=== PATIENT | male | born 1960 | race Caucasian/White ===

== ENCOUNTER → 2023-11-04 11:46 | Outpatient (REF) | payer BC, SELFPAY | LOC: HWRAD 11:46 | PROVIDERS: ATTENDING PHYSICIAN Student in an Organized Health Care Education/Training Program | DX: L03.90 Cellulitis, unspecified (principal); L97.519 Non-pressure chronic ulcer of other part of right foot with unspecified severity | CPT/HCPCS: 73630 ==

== ENCOUNTER 2024-03-26 06:07 | Inpatient (IN) | payer BC, SELFPAY ==
[2024-03-26] VITALS (18 sets, daily range): BP systolic 111–164; BP diastolic 73–94; BMI 33.8; BMI 33.2
--- NOTE | 2024-03-26 01:22 | ED.GENMED ---
History of Present Illness
<KASSIDY Simms - Last Filed: 03/26/24 17:59>
General
Chief Complaint: Abdominal Pain
Source: patient and spouse
Exam Limitations: none
Time Seen by Provider: 03/26/24 01:13
History of Present Illness
History of Present Illness:
This is a 63 year old male that comes in with c/o upper abd pain. States that this started about 1 hour ago and has been constant. states that he had dry heaves and then he as making himself vomiting. States that he has vomited since then.
States that he feels SOB up a little higher then his abd. . Denies any fever, chills, diarrhea, headache, dizziness, urinary burning.
Past History
<KASSIDY Simms - Last Filed: 03/26/24 17:59>
Past History
ED Past Medical History: HTN, NIDDM and Other (fatty liver)
ED Past Surgical History: Orthopedic (discectomy)
Social History
Tobacco: Former smoker
Alcohol: Occasional
Personal:
Living: with family
Review of Systems
<KASSIDY Simms - Last Filed: 03/26/24 17:59>
Review of Systems
All Other Systems: ROS reviewed and negative except as documented in HPI and ROS
Constitutional: Reports no symptoms; Denies fever or chills
EENT: Reports no symptoms
Cardiac: Denies chest pain
ABD/GI: Reports abdominal pain (Upper abd), nausea and vomiting; Denies diarrhea
: Reports no symptoms; Denies dysuria, frequency or urgency
Musculoskeletal: Reports no symptoms
Skin: Reports no symptoms
Neurological: Reports no symptoms; Denies dizzy or headache
Psychiatric: Reports no symptoms
Phy Exam
<KASSIDY Simms - Last Filed: 03/26/24 17:59>
General Physical Exam
General Presentation: moderate distress
General age: appears stated age
General Skin: warm and dry
General Habitus: normal
General Mental: alert
General Hydration: appears well hydrated
ENT Exam
ENT Exam: TM's normal, pharynx normal and neck supple
Eye Exam
Eye Exam: EOMI
Cardiovascular Exam
Cardiovascular Exam: regular rate/rhythm, no edema and normal peripheral pulses
Pulmonary Exam
Pulmonary Exam: lungs clear, no respiratory distress, no rales, chest non tender, no crackles, no rhonchi, no wheezing and no cough
Gastrointestinal Exam
Gastrointestinal Exam: normal bowel sounds, soft, no organomegaly, no pulsatile mass, non distended and tender (Upper epigastric area with palpation)
Musculoskeletal Exam
Musculoskeletal Exam: full ROM and no edema
Skin Exam
Skin Exam: normal color, warm/dry, no rash and no petechia
Psychiatric Exam
Psychiatric Exam: normal mood/affect
Course
<KASSIDY Simms - Last Filed: 03/26/24 17:59>
Orders/Labs/Results
Orders:
Orders
03/26/24 01:12
Electrocardiogram (*1) Urgent
Reason for Study: Abdominal Pain
03/26/24 01:21
0.9% Sodium Chloride 1000 ml [Nss] 1,000 ml IV BOLUS
HYDROmorphone [Dilaudid] 1 mg IV NOW STA
Ondansetron Injectable [Zofran] 4 mg IV NOW STA
Pantoprazole [Protonix IV] 40 mg IV NOW STA
US Abdomen Complete/Upper Urgent
Comment:
Reason For Exam: Upper abd pain
03/26/24 01:46
Complete Blood Count/With Diff Urgent
Comprehensive Metabolic Panel Urgent
Lipase Urgent
Troponin I Urgent
03/26/24 02:50
Sucralfate Suspension [Carafate Suspension] 1 gm PO NOW STA
03/26/24 02:55
CT Abd/pelvis W Iv Cont Urgent
Comment:
Reason For Exam: upper abd pain/ right sided
CR Chest - 2 Views Urgent
Comment:
Reason For Exam: SOB
03/26/24 05:29
HYDROmorphone [Dilaudid] 1 mg IV NOW STA
03/26/24 05:44
Admit/Transfer Patient As Directed
Co-Sign Provider:
Level of Care: Inpatient admission
Assign to:: Telemetry
Physician / Group: Juni
Diagnosis: Cholelithiasis +/- Cholecystitis
Reason for Telemetry: Arrhythmia
Date to Stop Telemetry: 03/29/24
Time to Stop Telemetry: 11:00
Reason for Hospitalization: Cholelithiasis +/- Cholecystitis
Expected length of stay greater than two midnights?: Yes
ELOS- Estimated Length of Stay in days: 3
I certify the patient meets the requirements for IP care: Yes
03/26/24 05:45
Code Status As Directed
Resuscitation Status: Full Code
PRN Pain Medication Management As Directed
May give lesser potent ordered pain med per pt: Yes
preference::
Protocol:: Medication orders for pain may be administered in a
manner that supports deferring to patient preference
when the pt is:
- Requesting an ordered lesser potent pain medication.
Least to most potent pain medications are defined
as: acetaminophen < NSAID < tramadol < opioids
(morphine, oxycodone, hydromorphone).
- Requesting a lesser dose of the same medication IF
ORDERED.
- Requesting a less intrusive route of administration
if both routes are prescribed by the provider (PO <
IV).
03/26/24 Breakfast
NPO
Allow oral meds: Yes
Allow clear liquids: Sips of Clears
03/26/24 07:12
B-Hydroxybutyrate Urgent
03/26/24 08:09
Acetaminophen [Tylenol] 650 mg PO Q4HPRN PRN
Atenolol [Tenormin] 50 mg PO DAILY
Dextrose 50%-Water [Dextrose 50% Syringe] 12.5 grams IV [id number] PRN
Glucagon [GlucaGen] 1 mg IM PRN PRN
HYDROmorphone [Dilaudid] 0.5 mg IV Q4HPRN PRN
Insulin Aspart Corrective Mod [Novolog Flexpen-Moderate Resistance] See Protocol SC AC
Insulin Glargine Lantus [Lantus] 10 units Subcutaneous Insulin Syringe [Syringe-Insulin] 0 unit SC DAILY
Lactated Ringers [Lr] 1,000 ml IV 125 mls/hr
Ondansetron Injectable [Zofran] 4 mg IV Q6HPRN PRN
Pantoprazole [Protonix IV] 40 mg IV DAILY
03/26/24 08:09
Consult Notification Routine
Specialty to Notify: Surgical
SURGICAL CONSULT Routine
Consulting Provider: Fly Berger
Was physician already notified: No
Reason for consult: Cholelithiasis +/- Cholecystitis
Activity As Directed
Activity Level: Ambulate
Bedside Glucose Monitoring As Directed
Frequency: AC&HS
Additional Instructions:: Change to q6h if pt on TPN, tube feeding or not eating
Bladder Scan As Directed
Follow Bladder Retention/Intermittent Cath Algorithm?: Yes
PRN if no void in __ hours: 6
Frequency: Per Retention Algorithm
If Bladder Scan Result >: 400
then:: Straight cath
EKG with chest pain [ECG as needed] As Directed
ECG as needed for:: Chest Pain
I/O [Intake/ Output] As Directed
Frequency: Per unit guidelines
Pneumatic Compression Sleeves As Directed
Type: Knee high
Straight Cath As Directed
Frequency: Per Retention Algorithm
Additional Instructions: straight cath as needed per acute urinary retention algorithm for 24 hrs
Additional Instructions: for bladder scan greater than 400 mL
Vital Signs As Directed
Frequency: Per unit guidelines
Oxygen Therapy [O2 Therapy] [RESP] Routine
Titrate/Wean O2 to maintain O2 sat greater than (%): 94
DX Deep Vein Thrombosis Video Routine
03/26/24 09:20
Lactate Level [Lactic Acid] Routine
03/27/24 06:00
Complete Blood Count/No Diff IN AM
Glycohemoglobin (HgbA1c) IN AM
03/29/24 11:00
DC Protocol for Telemetry ONCE
Abnormal Lab Results
03/26/24
01:46
Absolute Monos (auto) 0.8 H 10^3/uL
(0.1-0.6)
Monocytes % 9.8 H %
(1.7-9.3)
BUN 22 H mg/dl
(9-20)
Glucose 339 H mg/dl
(70-99)
Total Bilirubin 1.6 H mg/dl
(0.2-1.3)
ALT 54 H U/L
(0-50)
03/26/24 01:46
03/26/24 01:46
Dehydration. Hyperglycemia. Total stevenson elevation, ALT slightly elevated. Lipase normal at 159, Troponin <0.012
Vital Signs
Initial and Last Documented VS:
Initial Vital Signs
Temp Pulse Resp BP Pulse Ox
97.6 F 81 24 139/76 99
03/26/24 01:04 03/26/24 01:04 03/26/24 01:04 03/26/24 01:04 03/26/24 01:04
Last Documented Vital Signs
Temp Pulse Resp BP Pulse Ox
98.8 F 67 17 146/76 96
03/26/24 17:15 03/26/24 17:15 03/26/24 17:15 03/26/24 17:15 03/26/24 17:15
<Marciano Garcia, DO - Last Filed: 03/26/24 04:41>
Orders/Labs/Results
Orders:
Orders
03/26/24 01:12
Electrocardiogram (*1) Urgent
Reason for Study: Abdominal Pain
03/26/24 01:21
0.9% Sodium Chloride 1000 ml [Nss] 1,000 ml IV BOLUS
HYDROmorphone [Dilaudid] 1 mg IV NOW STA
Ondansetron Injectable [Zofran] 4 mg IV NOW STA
Pantoprazole [Protonix IV] 40 mg IV NOW STA
US Abdomen Complete/Upper Urgent
Comment:
Reason For Exam: Upper abd pain
03/26/24 01:46
Complete Blood Count/With Diff Urgent
Comprehensive Metabolic Panel Urgent
Lipase Urgent
Troponin I Urgent
03/26/24 02:50
Sucralfate Suspension [Carafate Suspension] 1 gm PO NOW STA
03/26/24 02:55
CT Abd/pelvis W Iv Cont Urgent
Comment:
Reason For Exam: upper abd pain/ right sided
CR Chest - 2 Views Urgent
Comment:
Reason For Exam: SOB
03/26/24 05:29
HYDROmorphone [Dilaudid] 1 mg IV NOW STA
03/26/24 05:44
Admit/Transfer Patient As Directed
Co-Sign Provider:
Level of Care: Inpatient admission
Assign to:: Telemetry
Physician / Group: Juni
Diagnosis: Cholelithiasis +/- Cholecystitis
Reason for Telemetry: Arrhythmia
Date to Stop Telemetry: 03/29/24
Time to Stop Telemetry: 11:00
Reason for Hospitalization: Cholelithiasis +/- Cholecystitis
Expected length of stay greater than two midnights?: Yes
ELOS- Estimated Length of Stay in days: 3
I certify the patient meets the requirements for IP care: Yes
03/26/24 05:45
Code Status As Directed
Resuscitation Status: Full Code
PRN Pain Medication Management As Directed
May give lesser potent ordered pain med per pt: Yes
preference::
Protocol:: Medication orders for pain may be administered in a
manner that supports deferring to patient preference
when the pt is:
- Requesting an ordered lesser potent pain medication.
Least to most potent pain medications are defined
as: acetaminophen < NSAID < tramadol < opioids
(morphine, oxycodone, hydromorphone).
- Requesting a lesser dose of the same medication IF
ORDERED.
- Requesting a less intrusive route of administration
if both routes are prescribed by the provider (PO <
IV).
03/26/24 Breakfast
NPO
Allow oral meds: Yes
Allow clear liquids: Sips of Clears
03/26/24 07:12
B-Hydroxybutyrate Urgent
03/26/24 08:09
Acetaminophen [Tylenol] 650 mg PO Q4HPRN PRN
Atenolol [Tenormin] 50 mg PO DAILY
Dextrose 50%-Water [Dextrose 50% Syringe] 12.5 grams IV [id number] PRN
Glucagon [GlucaGen] 1 mg IM PRN PRN
HYDROmorphone [Dilaudid] 0.5 mg IV Q4HPRN PRN
Insulin Aspart Corrective Mod [Novolog Flexpen-Moderate Resistance] See Protocol SC AC
Insulin Glargine Lantus [Lantus] 10 units Subcutaneous Insulin Syringe [Syringe-Insulin] 0 unit SC DAILY
Lactated Ringers [Lr] 1,000 ml IV 125 mls/hr
Ondansetron Injectable [Zofran] 4 mg IV Q6HPRN PRN
Pantoprazole [Protonix IV] 40 mg IV DAILY
03/26/24 08:09
Consult Notification Routine
Specialty to Notify: Surgical
SURGICAL CONSULT Routine
Consulting Provider: Fly Berger
Was physician already notified: No
Reason for consult: Cholelithiasis +/- Cholecystitis
Activity As Directed
Activity Level: Ambulate
Bedside Glucose Monitoring As Directed
Frequency: AC&HS
Additional Instructions:: Change to q6h if pt on TPN, tube feeding or not eating
Bladder Scan As Directed
Follow Bladder Retention/Intermittent Cath Algorithm?: Yes
PRN if no void in __ hours: 6
Frequency: Per Retention Algorithm
If Bladder Scan Result >: 400
then:: Straight cath
EKG with chest pain [ECG as needed] As Directed
ECG as needed for:: Chest Pain
I/O [Intake/ Output] As Directed
Frequency: Per unit guidelines
Pneumatic Compression Sleeves As Directed
Type: Knee high
Straight Cath As Directed
Frequency: Per Retention Algorithm
Additional Instructions: straight cath as needed per acute urinary retention algorithm for 24 hrs
Additional Instructions: for bladder scan greater than 400 mL
Vital Signs As Directed
Frequency: Per unit guidelines
Oxygen Therapy [O2 Therapy] [RESP] Routine
Titrate/Wean O2 to maintain O2 sat greater than (%): 94
DX Deep Vein Thrombosis Video Routine
03/26/24 09:20
Lactate Level [Lactic Acid] Routine
03/27/24 06:00
Complete Blood Count/No Diff IN AM
Glycohemoglobin (HgbA1c) IN AM
03/29/24 11:00
DC Protocol for Telemetry ONCE
Abnormal Lab Results
03/26/24
01:46
Absolute Monos (auto) 0.8 H 10^3/uL
(0.1-0.6)
Monocytes % 9.8 H %
(1.7-9.3)
BUN 22 H mg/dl
(9-20)
Glucose 339 H mg/dl
(70-99)
Total Bilirubin 1.6 H mg/dl
(0.2-1.3)
ALT 54 H U/L
(0-50)
03/26/24 01:46
03/26/24 01:46
Vital Signs
Initial and Last Documented VS:
Initial Vital Signs
Temp Pulse Resp BP Pulse Ox
97.6 F 81 24 139/76 99
03/26/24 01:04 03/26/24 01:04 03/26/24 01:04 03/26/24 01:04 03/26/24 01:04
Last Documented Vital Signs
Temp Pulse Resp BP Pulse Ox
98.8 F 67 17 146/76 96
03/26/24 17:15 03/26/24 17:15 03/26/24 17:15 03/26/24 17:15 03/26/24 17:15
<KASSIDY Simms - Last Filed: 03/26/24 17:59>
MDM/Problems Addressed
Differential Diagnosis Includes:
Pancreatitis, gallbladder disease
MDM/Problems Addressed:
this is a 63 year old male that comes in with c/o upper abd pain. State that this started about 10:45 and has been constant. Patient was dry heaving first and then made himself vomit. states that he has vomited since then.
Will get labs. ECG and Ultrasound. Will medicate for pain and vomiting. Will also give IV fluids.
back into see patient. States that his pain is some better but still there. Explained that his blood work shows slight Dehydration and his blood sugar is elevated. Liver enzymes slightly elevated which goes along with his fatty liver. troponin
normal. Will give Carafate at this time and recheck. Patient left with Dr. Garcia for CT scan.
Chronic conditions affecting care: DM
Acute Exacerbation and/or Progression of Chronic Illness:
NA
<KASSIDY Simms - Last Filed: 03/26/24 17:59>
*Radiology
Radiology exam reviewed: radiology read reviewed (US night hawk- gallbladder appears normal. No appreciable gallstones or sludge. No gallbladder wall thickening or pericholecystic fluid. Negative sonographic Sellers's sign per report. No bile duct
dilation. Pancreas obscured by bowel gas. diffuse increased hepatic echogenicity, Suggesting Steatosis.) and all reviewed NAD by ED Provider (Us cont- Bilateral kidneys appear normal and are symmetric. Normal sized spleen. No appreciable free
fluid. )
*Pulse Oximetry
Patient hypoxic: no
*EKG
Interpreted by ED Provider?: Yes
Heart Rate: 76
Rate: normal
Rhythm: sinus
[place]: left axis deviation
Interval: first degree heart block
QRS Pattern: normal QRS
Ischemia: no ischemia
*Automotive Service Advisor Interpretation
Rate: normal
Heart Rate: 78
Rhythm: sinus
*Critical Care Note
Total Time (30-74mins, 75-104mins- exclusive of procedures): Not Applicable
<Marciano Garcia DO - Last Filed: 03/26/24 04:41>
Update Note
Update Note:
CT abdomen and pelvis with contrast
IMPRESSION:
Cholelithiasis with several small calcified gallstones in the infundibulum/neck
3-4 mm calcified stone in the region of neck/cystic duct junction
May be impacted
Gallbladder is mildly distended with appearance of a tensile gallbladder fundus, series 201 images 30 and 31, potential early sign of acute cholecystitis
No other secondary findings. No appreciable wall thickening, pericholecystic fluid, or inflammatory changes
Suggest correlating with CBC and biochemical parameters.
If high clinical suspicion, consider surgical consultation
No other acute intra-abdominal pathology
Enlarged prostate
Degenerative changes in the spine, pelvis, and hips
Coronary and systemic atherosclerotic calcifications
ED Attending Note
<KASSIDY Simms - Last Filed: 03/26/24 17:59>
-
Portions of this chart may have been created with voice recognition software.� Occasional wrong word or��sound alike� substitutions may have occurred due to the inherent limitations of voice recognition software.
Discharge Plan
Departure
Patient Disposition: Admit
Date of Disposition: 03/26/24
Time of Disposition: 04:41
Admit to: Med/Surg
Presentation/result/management discussed w/ accepting MD/DO: Hospitalist
Patient with high blood pressure during this ER visit?: Yes
Condition: Good
Covid-19: Not Applicable
Discharge Problem:
Cholelithiasis
Interventions
Interventions:
*Risk Screen - Suicide Last Done: 03/26/24 01:04
*General Assessment Last Done: 03/26/24 01:56
*Neglect/Abuse Screening Last Done: 03/26/24 01:04
ED- Fall Risk Assessment Last Done: 03/26/24 01:56
*ED COVID-19 Vaccine History Last Done: 03/26/24 01:04
*Nursing Disposition Last Done: 03/26/24 07:52
FT-Zkscqm-Pojczvpzhc Assessment Last Done: 03/26/24 01:56
Discharge Date and Time
Discharge Date/Time: 03/26/24 07:52
[2024-03-26] MEDS: DILAUDID 1 MG IV ×2 (01:49→07:16)
[2024-03-26] MEDS: ZOFRAN 4 MG IV (01:49)
[2024-03-26] MEDS: PROTONIX IV 40 MG IV ×2 (01:49→08:21)
[2024-03-26] MEDS: NSS 1000 IV (01:50)
[2024-03-26 01:56] LABS: % Basophils 1.3 % (0-2); % Eosinophils 5.4 % (0-6); % Immature Granulocytes 0.3 % (0-0.5); % Lymphocytes 27.8 % (20.5-51.1); % Monocytes 9.8 % (1.7-9.3); % Neutrophils 55.4 % (42.2-75.2); Absolute Basophils 0.1 10^3/uL (0-0.2); Absolute Eosinophils 0.4 10^3/uL (0-0.7); Absolute Lymphocytes 2.1 10^3/uL (1.2-3.4); Absolute Monocytes 0.8 10^3/uL (0.1-0.6); Absolute Neutrophils 4.2 10^3/uL (1.4-6.5); Hematocrit 42.7 % (39.0-52.0); Hemoglobin 15.7 g/dL (13.0-18.0); Mean Corp Hgb Conc. 36.8 g/dL (33.0-37.0); Mean Corpuscular Hgb 29.7 pg (27.0-31.0); Mean Corpuscular Volume 80.9 fL (80.0-94.0); Mean Platelet Volume 10.3 fL (7.4-10.4); Nucleated Red Blood Cells % 0 % (-); Platelet Count 221 10^3/uL (130-400); Red Blood Cell Count 5.28 10^6/uL (4.70-6.10); Red Cell Dist. Width 12.7 % (11.5-14.5); White Blood Cell Count 7.6 10^3/uL (4.8-10.8)
[2024-03-26 02:08] LABS: ALT (SGPT) 54 U/L (0-50); AST (SGOT) 44 U/L (17-59); Albumin 4.6 g/dl (3.5-5.0); Alkaline Phosphatase 109 U/L (38-126); Blood Urea Nitrogen 22 mg/dl (9-20); Carbon Dioxide 22 mmol/L (22-30); Chloride 101 mmol/L (98-107); Estimated Creatinine Clearance 88 ml/min; Glucose 339 mg/dl (70-99); Lipase 159 U/L (23-300); Potassium 4.3 mmol/L (3.5-5.1); Sodium 140 mmol/L (135-145); Total Bilirubin 1.6 mg/dl (0.2-1.3); Total Protein 7.3 g/dl (6.3-8.2); eGFR > 60.00
[2024-03-26 02:17] LABS: Troponin I < 0.012 ng/ml
[2024-03-26] MEDS: CARAFATE SUSPENSION 1 GM PO (03:06)
--- NOTE | 2024-03-26 05:49 | HPS.HSE ---
Family Physician
-
Family Physician: Ab Montanez
Chief Complaint
-
Abd Pain
History of Present Illness
Patient is a 63y M with PMH significant for hypertension and DM-II who presents to ED complaining of abdominal pain. Patient states that he was feeling well until he went to bed this evening around 11:30 PM. At that point, he developed fairly
sudden on set of upper abdominal discomfort and nausea. Patient reports severe pain in the upper abdomen with some radiation into the left shoulder.
He attempted to induce emesis with 'dry heaves' and no significant change in his pain / symptoms.
With persistent symptoms he presented to the ED for further evaluation and treatment.
Since arrival here, his pain has localized to the RUQ and has continued - temporarily improved with narcotic pain medication.
Patient denies any fevers / chills. No diarrhea / bloody stools. No prior history of similar symptoms.
No new medications.
Medical History
Past Medical History
Past Medical History: Reports Other
Additional Past Medical History:
Hypertension
DM-II
Depression
DDD
Fatty Liver / MAFLD
Past Surgical History: Reports Other
Additional Past Surgical History:
Lumbar Discectomy
Social History
Tobacco: Former Smoker (Quit smoking about 20 years ago. Approx 20 pack years total use.)
Alcohol: Occasional (Very rare.)
Personal:
Living: With Family
Family History
Family History: Other (Father: CAD, AAA, Prostate Cancer Mother: A-Fib, GB Disease)
Allergies / Home Medications
Allergies reflects when Allergies were last updated in [facility].
Home Medications with original date entered in [facility]
Allergy/Medication List:
Allergies
Allergy/AdvReac Type Severity Reaction Status Date / Time
Penicillins Allergy Unknown Verified 03/26/24 01:04
Home Medications
amlodipine 10 mg tablet 10 mg PO DAILY #10 tabs 04/11/19
atenolol 50 mg tablet 50 mg PO DAILY #10 tabs 04/11/19
metformin 1,000 mg tablet 1,000 mg PO BID@0800,1700 #20 tabs 04/11/19
atorvastatin 10 mg tablet 10 mg PO QPM 03/26/24
glipizide 10 mg tablet 10 mg PO DAILY 03/26/24
losartan 100 mg tablet 100 mg PO DAILY 03/26/24
Review of Systems
-
History Source: Patient
A 12 point ROS was completed and negative except as noted: Yes
Constitutional: Denies Fever, Fatigue or Chills
EENT: Denies Sore Throat
Respiratory: Denies Cough or Trouble Breathing
Cardiac: Denies Chest Pain or Palpitations
Abdomen/GI: Reports Abdominal Pain, Nausea and Vomiting; Denies Diarrhea, Constipated, Bloody Stools, Black Stools or Anorexia
: Denies Dysuria or Flank Pain
Neurological: Denies Dizzy or Headache
Psych: Denies Depression or Anxiety
Physical Exam
Vital Signs
Vital Signs
Temp Pulse Resp BP Pulse Ox
97.6 F 82 18 124/73 97
03/26/24 01:04 03/26/24 03:08 03/26/24 03:08 03/26/24 03:08 03/26/24 03:08
Physical Exam
General: Other (63y M in mild distress due to pain.)
HEENT: Moist mucous membranes and PERRLA
Respiratory: Clear; No Wheezes, Rales or Rhonchi
Cardiac: S1/S2 and Regular Rhythm; No Murmur
GI: Soft, Non Distended, Normal Bowel Sounds and Other (Pos RUQ tenderness without rebound / guarding. Pos BS.)
Musculoskeletal: No Clubbing, No Cyanosis and No Edema
Neuro: AO x 3
Laboratory Results
-
03/26/24 01:46
03/26/24 01:46
Laboratory Results
Total Bilirubin 1.6 mg/dl (0.2-1.3) H 03/26/24 01:46
AST 44 U/L (17-59) 03/26/24 01:46
ALT 54 U/L (0-50) H 03/26/24 01:46
Alkaline Phosphatase 109 U/L (38-126) 03/26/24 01:46
Troponin I < 0.012 ng/ml 03/26/24 01:46
Lipase 159 U/L (23-300) 03/26/24 01:46
Impression/Plan
-
A/P: Patient is a 63y M with PMH significant for HTN and DM-II who presents to ED complaining of RUQ abdominal pain.
Cholelithiasis +/- Cholecystitis
- Admit for further evaluation and treatment.
- US was unremarkable, though CT clearly shows stones in the GB fundus / ? neck.
- Afebrile without leukocytosis or elevated alk phos, ductal dilation, etc.
- Supportive care with IVFs, pain control, antiemetics, etc.
- Surgery evaluation this AM for additional recommendations.
- ? cholecystectomy v HIDA v other.
- Observe off of abx for now.
- Follow for any new / worsening symptoms.
Anion Gap Metabolic Acidosis
- Initial labs with elevated anion gap of 19.
- Lactate and B-OH are pending.
- Insulin administration as noted below for DM.
- IVF support and follow for improvement in labs / lytes.
Benign Hypertension
- Stable. BP controlled at present.
- Continue atenolol with holding parameters.
- Hold other meds acutely and resume if needed.
DM-II
- Hyperglycemia in the ED - likely due to acute process.
- IVFs support.
- Begin basal insulin this AM. Hold PO medications for now.
- Follow glucose and cover with SSI as needed.
- Update A1C.
DVT Prophylaxis: SCDs
Code Status: Full
[2024-03-26 07:41] LABS: B-Hydroxybutyrate 0.64 mmol/L (0.02-0.27)
[2024-03-26] MEDS: LR 1000 IV ×2 (08:21→23:04)
[2024-03-26] MEDS: LANTUS 0.1 UNITS SC (08:25)
[2024-03-26] MEDS: TENORMIN 50 MG PO (08:26)
[2024-03-26] MEDS: NOVOLOG FLEXPEN-MODERATE RESISTANCE 5 UNITS SC ×3 (08:35→23:06)
[2024-03-26 08:38] LABS: Glucose - Point of Care 281 mg/dl (70-99)
--- NOTE | 2024-03-26 09:31 | W.PN.HOSP.TC ---
Today's Communication/Plan
-
For cholecystectomy today
Assessment / Plan
Assessment / Plan
63y M with PMH significant for HTN and DM-II who presents to ED complaining of RUQ abdominal pain.
Cholelithiasis +/- Cholecystitis
- US was unremarkable, though CT clearly shows stones in the GB fundus / ? neck.
- Afebrile without leukocytosis or elevated alk phos, ductal dilation, etc.
- Appreciate general surgery input, plan for laparoscopic cholecystectomy today
- Started on Zosyn by general surgery, trend LFTs
Anion Gap Metabolic Acidosis
- Lactic acid 2.2, possible etiologies include metformin
- Hold metformin, monitor
Benign Hypertension
- Stable. BP controlled at present.
- Continue atenolol with holding parameters.
- Hold other meds acutely and resume if needed.
DM-II
- Hyperglycemia in the ED - likely due to acute process.
- IVFs support. Begin basal insulin this AM. Hold PO medications for now.
- Follow glucose and cover with SSI as needed.
- Update A1C.
Right renal lesion
- 6 mm lesion which cannot be definitively characterized as a cyst
- Further evaluation is advised with dedicated CT or MRI of the abdomen with attention to the kidneys, to be performed without and with contrast if there are no contraindications.
Fatty liver
-Outpatient follow-up with GI
DVT Prophylaxis: SCDs
Code Status: Full
Updated at bedside 03/26
Physical Exam
General: No acute distress
HEENT: Normocephalic, Atraumatic, EOMI, MMM
Respiratory: Clear to Auscultation bilaterally
Cardiac: Normal S1/S2, Regular Rate and Rhythm
GI: Soft, Nontender, Nondistended, Normal Bowel Sounds
Extremities: No Clubbing, Cyanosis, or Edema
Neuro: Nonfocal/Grossly Intact
Psych: Calm, Cooperative
Derm: No Visible lesions
Anticipated Discharge: 24 - 48 hours
Subjective/Interval History
-
Date of Service: March 26, 2024
Patient is abdominal pain is much improved. He denies fever, no nausea, no vomiting. No chest pain, no shortness of breath.
Objective Data
-
Labs:
Laboratory Results
03/26/24
01:46
WBC 7.6
Hgb 15.7
Hct 42.7
Plt Count 221
Sodium 140
Potassium 4.3
Chloride 101
Carbon Dioxide 22
BUN 22 H
Creatinine 1.0
Glucose 339 H
Calcium 10.0
Total Bilirubin 1.6 H
AST 44
ALT 54 H
Alkaline Phosphatase 109
Vital Signs:
Vital Signs
Temp Pulse Resp BP Pulse Ox
97.8 F 86 16 152/85 98
03/26/24 08:45 03/26/24 08:45 03/26/24 08:45 03/26/24 08:45 03/26/24 08:45
[2024-03-26 09:43] LABS: Lactic Acid 2.2 mmol/L (0.7-2.0)
--- NOTE | 2024-03-26 11:06 | W.PN.GS2 ---
Today's Communication / Plan
-
- Patient NPO
- Started patient on Zoysn
- Plan to perform laparoscopic cholecystectomy today
Assessment / Plan
-
Given exam and imaging, we suspect developing cholecystitis vs biliary colic
WBC 7.6 today, Lactic Acid 2.2, Total bilirubin 1.6, Serum Glucose 339
#Acute Cholecystitis:
- Ultrasound imaging showed no stone in gallbladder.
- CT abdomen/pelvis showed small calcified gallstones.
- Planning on doing surgery today via Laparoscopic Cholecystectomy because patient has previous history of cholelithiasis on records, fatty liver, tenderness to palpation so the chance of gallstone reoccurrence is high.
- Explained to patient the risks/ benefits of the procedure
- Transition patient to NPO today
- Started patient on Zosyn
- Trend labs
#Diabetes mellitus type 2:
- manage medically with the hospitalist team
#Hypertension:
- Manage medically with the hospitalist team
#fatty liver:
- Manage medically with the hospitalist team
Subjective Data
-
Date of Service: March 26, 2024
63 year old patient with a PMH of HTN, DM2, Fatty liver, and depression last night around 11:30PM felt epigastric pain, radiating to his shoulder, severe in intensity, associated with dry heaving, nausea and 2 episodes vomiting. Pain occurred after
patient had eaten 2 slices of pizza. Today morning, the intensity and characteristics of the pain is the same but pain has radiated to the RUQ. No constipation, diarrhea, fever, chills. Patient is given Dilaudid and acetaminophen as needed to
control the pain which is working for him.
Objective Data
-
Vital Signs
Temp Pulse Resp BP Pulse Ox
97.8 F 86 16 152/85 98
03/26/24 08:45 03/26/24 08:45 03/26/24 08:45 03/26/24 08:45 03/26/24 08:45
Lab Results
03/26/24 01:46
03/26/24 01:46
Calcium 10.0 mg/dl (8.4-10.2) 03/26/24 01:46
Total Bilirubin 1.6 mg/dl (0.2-1.3) H 03/26/24 01:46
AST 44 U/L (17-59) 03/26/24 01:46
ALT 54 U/L (0-50) H 03/26/24 01:46
Alkaline Phosphatase 109 U/L (38-126) 03/26/24 01:46
Total Protein 7.3 g/dl (6.3-8.2) 03/26/24 01:46
Albumin 4.6 g/dl (3.5-5.0) 03/26/24 01:46
Physical Exam
-
Physical Exam
General: Well Developed and Well Nourished
HEENT: Normocephalic, Anicteric and Moist Mucous Membranes
Respiratory: Clear and Non Labored Respirations
Cardiac: S1/S2 and Regular Rhythm
Breast: Deferred by me
GI: +tenderness to the RUQ on palpation, Normal Bowel Sounds, not Distended
Rectal: Deferred by Provider
Genito-urinary: No Costovertebral Tender
Musculoskeletal: No Clubbing, No Cyanosis and No Edema
Skin: Warm and Dry
Neuro: AO x 3
Hematologic/Lymphatic: No Lymphadenopathy
Psych: Calm
[2024-03-26] MEDS: NSS (PRESERVATIVE FREE) IV (11:24)
--- NOTE | 2024-03-26 11:46 | CM ---
Reviewed the chart notes and spoke with the patient and his spouse at the bedside. The patient anticipates going to the OR for a lap galdino. The patient resides with his spouse in a two story home with one step to enter via garage. The patient
reports no DME/VN/SNF in the past. The patient confirmed his pharmacy of choices is the [facility].
Plan: Discharge plans will depend on the patient's progress.
[2024-03-26] MEDS: ZOSYN 50 IV ×3 (12:02→23:04)
[2024-03-26 12:28] LABS: Glucose - Point of Care 235 mg/dl (70-99)
--- NOTE | 2024-03-26 14:04 | W.SUR.PREOP ---
Pre-Operative Surgical Note
-
I have examined this patient prior to the performance of the scheduled procedure.
The patient's condition is unchanged from the time of the current History and
Physical and the patient is able to undergo the scheduled procedure.
--- NOTE | 2024-03-26 16:06 | W.IMMPOSTOP ---
Surgical Immed Post Op Note
-
Primary Surgeon: Fly Breger MD
Assisting Surgeon: None
Rn Eligibility: RONY Bowman
Pre-op Diagnosis: Acute cholecystitis, fatty liver disease
Post-op Diagnosis: Gangrenous cholecystitis, fatty liver disease
Procedure Performed:
1. Laparoscopic cholecystectomy with cholangiogram
2. Liver biopsy
Anesthesia Type: General
Specimen / Cultures:
1. Gallbladder and contents
2. Liver biopsy
Estimated Blood Loss: 11 cc
Complications: None
Operative Findings: Gangrenous cholecystitis without perforation. Critical view of safety obtained prior to a cholangiogram which demonstrated no distal filling defects. Duct ligated with a clip followed by a 0 PDS Endoloop. Fatty appearing
liver, biopsy taken from segment 4.
POST OP PLAN:
Imaging: None
Labs: Routine AM
Diet: Advance to Regular as tolerated
Analgesia: Tylenol 650mg q6 Daphney, Jihan 5mg q6 PRN, Dilaudid 0.5mg q2h PRN
Neuro/vascular checks: q4h
AC/AP: Hold Therapeutic AC, Ok for DVT PPx
Activity: Ad Lisa
Wound/Incisions/Drains: Routine
Abx: Antibiotics x 4 days
Dispo: RNF, Anticipate discharge home tomorrow.
[2024-03-26 16:52] LABS: Glucose - Point of Care 223 mg/dl (70-99)
[2024-03-26] MEDS: NOVOLOG vial 2 UNITS SC (17:06)
[2024-03-26] MEDS: NOVOLOG FLEXPEN-MODERATE RESISTANCE SC (18:03)
[2024-03-26] MEDS: LR IV (18:04)
[2024-03-26 22:30] LABS: Glucose - Point of Care 260 mg/dl (70-99)
[2024-03-27 03:00] VITALS: BP 120/72
[2024-03-27] MEDS: ZOSYN 50 IV ×2 (05:19→11:03)
--- NOTE | 2024-03-27 07:14 | W.PN.GS2 ---
Today's Communication / Plan
-
-- Pain control: Tylenol, Toradol, Oxycodone
-- HLIV
-- Abx: Zosyn/Augmentin for 4 days
-- Labs pending
-- DC today pending labs and diet tolerance
Assessment / Plan
-
Patient is a 63 yo M s/p acute cholecystitis. POD#1 s/p laparoscopic cholecystectomy
AVSS
Labs pending
No postoperative concerns. Repeat labs pending. Stable and okay for discharge pending labs.
-- Diabetic diet
-- Pain control: Tylenol, Toradol, Oxycodone
-- HLIV
-- Abx: Zosyn/Augmentin for 4 days
-- Home meds
-- DVT: Lovenox
-- Labs pending
-- DC today pending labs and diet tolerance
Subjective Data
-
Date of Service: March 27, 2024
No complaints. Pain well-controlled. No nausea or vomiting. Voiding. Ambulating.
Objective Data
-
Intake and Output
03/26/24 03/27/24 03/28/24
06:59 06:59 06:59
Intake Total 2180 / 2180
Balance 2180 / 2180
Intake:
Oral fluids 480 / 480
IV fluids (Total) 1600 / 1600
Normosol 100 / 100
IV piggybacks 100 / 100
Other:
Number of approximated SMALL 1
amounts of urine
Number of approximated MODERATE 3
amounts of urine
Vital Signs
Temp Pulse Resp BP Pulse Ox
97.9 F 75 16 120/72 95
03/27/24 03:00 03/27/24 03:00 03/27/24 03:00 03/27/24 03:00 03/27/24 03:00
Calcium 10.0 mg/dl (8.4-10.2) 03/26/24 01:46
Total Bilirubin 1.6 mg/dl (0.2-1.3) H 03/26/24 01:46
AST 44 U/L (17-59) 03/26/24 01:46
ALT 54 U/L (0-50) H 03/26/24 01:46
Alkaline Phosphatase 109 U/L (38-126) 03/26/24 01:46
Total Protein 7.3 g/dl (6.3-8.2) 03/26/24 01:46
Albumin 4.6 g/dl (3.5-5.0) 03/26/24 01:46
Physical Exam
-
Gen: NAD
Abd: soft, minimal tenderness at epigastrium, ND, non-peritoneal, incisions c/d/i - no erythema, ecchymosis or drainage
[2024-03-27 07:19] LABS: Glucose - Point of Care 245 mg/dl (70-99)
[2024-03-27] MEDS: TENORMIN 50 MG PO (07:47)
[2024-03-27] MEDS: PROTONIX IV 40 MG IV (07:48)
[2024-03-27] MEDS: NSS (PRESERVATIVE FREE) 10 ML IV (07:48)
[2024-03-27] MEDS: NOVOLOG FLEXPEN-MODERATE RESISTANCE 3 UNITS SC (07:49)
--- NOTE | 2024-03-27 07:53 | W.PN.HOSP.TC ---
Today's Communication/Plan
-
Discharge today
Assessment / Plan
Assessment / Plan
63y M with PMH significant for HTN and DM-II who presents to ED complaining of RUQ abdominal pain.
Acute cholecystitis
Cholelithiasis
- US was unremarkable, though CT clearly shows stones in the GB fundus / ? neck.
- Appreciate general surgery input, status post laparoscopic cholecystectomy and liver biopsy 03/26
- Patient has a leukocytosis today, but he is afebrile. Currently on IV Zosyn, he will be discharged on Augmentin for 4 days as per general surgery
- Tolerating a diet, medically stable for discharge, follow-up with general surgery in the office in 3-4 weeks
Anion Gap Metabolic Acidosis
- Lactic acid 2.2, possible etiologies include metformin
- Resolved with holding metformin
Benign Hypertension
- Stable. BP controlled at present.
- Continue atenolol with holding parameters.
- Resume other blood pressure medications upon discharge
DM-II
- Hyperglycemia in the ED - likely due to acute process.
- Hold metformin due to receiving IV contrast on 03/25, can resume on 03/29
- Resume glipizide upon discharge
Right renal lesion
- 6 mm lesion which cannot be definitively characterized as a cyst
- Further evaluation is advised with dedicated CT of the abdomen with attention to the kidneys, to be performed without and with contrast
- Prescription provided for patient to get dedicated CT outpatient
Fatty liver
-Outpatient follow-up with GI
DVT Prophylaxis: SCDs
Code Status: Full
Updated at bedside 03/26
Physical Exam
General: No acute distress
HEENT: Normocephalic, Atraumatic, EOMI, MMM
Respiratory: Clear to Auscultation bilaterally
Cardiac: Normal S1/S2, Regular Rate and Rhythm
GI: Soft, dipak-incisional tenderness noted, incisions clean/dry/intact
Extremities: No Clubbing, Cyanosis, or Edema
Neuro: Nonfocal/Grossly Intact
Psych: Calm, Cooperative
Derm: No Visible lesions
Anticipated Discharge: Today
Subjective/Interval History
-
Date of Service: March 27, 2024
Patient denies abdominal pain. No nausea, no vomiting. He has tolerated his diet. No chest pain, no shortness of breath. No fever.
Objective Data
-
Labs:
Laboratory Results
03/27/24 03/27/24
05:26 05:27
WBC 16.4 H
Hgb 14.1
Hct 40.0
Plt Count 190
Sodium 139
Potassium 4.1
Chloride 102
Carbon Dioxide 23
BUN 21 H
Creatinine 1.0
Glucose 250 H
Calcium 8.9
Total Bilirubin 2.3 H
AST 47
ALT 64 H
Alkaline Phosphatase 43
Vital Signs:
Vital Signs
Temp Pulse Resp BP Pulse Ox
98.1 F 75 16 144/83 93
03/27/24 08:31 03/27/24 08:31 03/27/24 08:31 03/27/24 08:31 03/27/24 08:31
I&O
03/26/24 03/27/24 03/28/24
06:59 06:59 06:59
Intake Total 2180 / 2180
Balance 2180 / 2180
[2024-03-27] MEDS: LANTUS 0.1 UNITS SC (07:58)
[2024-03-27 08:21] LABS: Hemoglobin 14.1 g/dL (13.0-18.0); Mean Corp Hgb Conc. 35.3 g/dL (33.0-37.0); Mean Corpuscular Hgb 30.6 pg (27.0-31.0); Mean Corpuscular Volume 86.8 fL (80.0-94.0); Mean Platelet Volume 11.2 fL (7.4-10.4); Platelet Count 190 10^3/uL (130-400); Red Blood Cell Count 4.61 10^6/uL (4.70-6.10); Red Cell Dist. Width 13.2 % (11.5-14.5); White Blood Cell Count 16.4 10^3/uL (4.8-10.8)
[2024-03-27] MEDS: LR 1000 IV (08:21)
[2024-03-27 08:31] VITALS: BP 144/83
[2024-03-27 08:45] LABS: ALT (SGPT) 64 U/L (0-50); AST (SGOT) 47 U/L (17-59); Albumin 4.1 g/dl (3.5-5.0); Alkaline Phosphatase 43 U/L (38-126); Blood Urea Nitrogen 21 mg/dl (9-20); Calcium 8.9 mg/dl (8.4-10.2); Carbon Dioxide 23 mmol/L (22-30); Chloride 102 mmol/L (98-107); Estimated Creatinine Clearance 87 ml/min; Glucose 250 mg/dl (70-99); Potassium 4.1 mmol/L (3.5-5.1); Sodium 139 mmol/L (135-145); Total Bilirubin 2.3 mg/dl (0.2-1.3); Total Protein 6.6 g/dl (6.3-8.2); eGFR > 60.00
[2024-03-27 09:36] LABS: Hepatitis C Antibody Negative (Negative)
--- NOTE | 2024-03-27 10:53 | W.DCSUMMARY ---
Discharge Summary
Discharge Data
Date of Admission: 03/26/24
Date of Discharge: 03/27/24
-
Pending Results: Yes
Additional Pending Results:
Liver biopsy results
Hospital Course
Discharge diagnosis:
Acute cholecystitis
Cholelithiasis
Anion gap metabolic acidosis, likely from metformin use
Benign essential hypertension
Type 2 diabetes
Right renal lesion
Fatty liver
Consults: Surgery
Procedures:
03/28/24
1. Laparoscopic Cholecystectomy with Cholangiogram
2. Liver biopsy
CT abd/pelvis:
There are small calcified gallstones within the dependent portion of the gallbladder. These gallstones were not able to be visualized by ultrasound.
On coronal image 24 of series 202, suggestion of slight stranding of the fat inferior to the gallbladder. This is a subtle finding, but suggests the possibility of acute cholecystitis, and please correlate clinically.
No evidence for biliary ductal dilation.
Fatty infiltration of the liver.
Arising in the medial lower pole the right kidney, there is a 6 mm lesion which cannot be definitively characterized as a cyst. Further evaluation is advised with dedicated CT or MRI of the abdomen with attention to the kidneys, to be performed
without and with contrast if there are no contraindications.
Hospital course:
63-year-old male with a past medical history of type 2 diabetes, and hypertension presented with abdominal pain, was found to have cholelithiasis with possible cholecystitis. Patient was seen in conjunction with general surgery, and treated with IV
Zosyn. He underwent laparoscopic cholecystectomy with cholangiogram, and liver biopsy for his fatty liver.
Patient did well postoperatively. He did have a leukocytosis afterwards. He was afebrile. He was continued on IV Zosyn while in the hospital, and will be discharged on Augmentin for 4 days.
Patient was found to have an incidental 6 mm right renal lesion. He has been instructed to get a dedicated CT of the abdomen with attention to the kidneys without contrast and with contrast, outpatient. Prescription has been provided.
Patient is medically stable for discharge. He needs to follow-up with his primary care doctor in 1 week, general surgery in the office in 3-4 weeks, and GI in 3-4 weeks for monitoring of his fatty liver.
Disposition: Home self-care
Discharge planning: Required 40 minutes
Discharge Plan
-
Patient Disposition: Home (Routine Discharge)
Discharge Diagnosis/Procedures: Acute cholecystitis, fatty liver disease, right renal lesion, type 2 diabetes, hypertension
Condition: Good
Diet: Low Fat and Diabetic, Carb Controlled
Activity: No strenuous activity
Bathing Restrictions: OK to Shower
Activity Restrictions/Additional Instructions:
Please get a CT of your abdomen to better define the characteristics of your right renal lesion.
Please follow-up with your primary care doctor in 1 week, and general surgery in 3-4 weeks.
You can also follow-up with GI in the office for monitoring of your fatty liver.
Instructions following Laparoscopic cholecystectomy
Please call [phone] if you have any questions or concerns after your surgery.
Wound Care:
Your incisions are covered with skin glue which will come off on it�s own in 5-10 days.
It is ok to shower the day after your surgery. Do not scrub the incisions, let soap and water wash over them and pat dry.
� Bruising around your incisions is normal.
� Using ice packs will help minimize this swelling.
� No swimming or soaking incisions for 1 week.
� Your stitches will dissolve and do not need to be removed.
Urinary retention:
If you are unable to urinate 6-8 hours after your surgery, please call [phone] to discuss further management.
Activity:
No heavy lifting more than 15 pounds for the next 3 weeks, then you may gradually lift heavier objects as tolerated by discomfort. Otherwise activity as tolerated by your comfort level.
Pain Management:
Use Tylenol, ibuprofen and ice packs to treat your pain.
� You may take 650 milligrams of Tylenol (Max 3 grams per day) every 6 hours, and 600 mg of ibuprofen also every 6 hours. (you can alternate them every 3 hours)
� You may use an ice pack to your incision as needed.
� If you still have pain not controlled by these measures, take your prescription pain medication as prescribed.
Medications:
You may resume your home medications.
Bowel Medications:
Prescription pain medication can make you constipated. If you take this medication, also take colace 100 mg twice daily (this is over the counter). If this is not sufficient, you may take Miralax (polyethylene glycol) to help move your bowels.
Diet:
After your procedure, there are no dietary restrictions. You may notice loose stools for up to 4 weeks after surgery with fatty meals, if this is the case you may have to adjust your diet as needed.
Driving restrictions:
No driving if you are taking prescription pain medication or if you think your normal reaction time and attentiveness has been slowed by your surgery.
Things to Look out for:
Worsening Abdominal pain, redness or drainage from incision
Call Doctor for:
Please call if you notice worsening redness or drainage from incision(s) lasting longer than 5 days after your surgery, any foul-smelling drainage from the incision, pain not controlled by pain medications, persistent nausea and vomiting, or for any
fevers greater than 101.3 F. The number for questions/concerns is [phone]
Follow-up:
Follow-up appointment will be scheduled with your surgeon in 3-4 weeks. Please call prior to your appointment if you have any questions or concerns. [phone]
Referrals:
Fly Berger MD [Active] - in two to four weeks
Liu Sloan DO [Active] - in three to four weeks
Ab Montanez MD [Family Provider] - in one week
Prescriptions:
New
acetaminophen 325 mg Tablet
650 mg PO Q4HPRN PRN (Reason: Mild Pain / Temp > 101) Qty: 60 0RF
oxycodone 5 mg Tablet
5 mg PO Q4HPRN PRN (Reason: moderate pain) Qty: 20 0RF
amoxicillin-pot clavulanate 875-125 mg tablet
1 tab PO BID 4 Days Qty: 8 0RF
Continued
amlodipine 10 MG tablet
10 mg PO DAILY Qty: 10 0RF
atenolol 50 MG tablet
50 mg PO DAILY Qty: 10 0RF
atorvastatin 10 mg Tablet
10 mg PO QPM
losartan 100 mg Tablet
100 mg PO DAILY
glipizide 10 mg Tablet Extended Release 24hr
10 mg PO DAILY
Held
metformin 1,000 MG tablet
1,000 mg PO BID@0800,1700 Qty: 20 0RF
Hold Instructions: Resume on 03/29/24.
Discharge Orders:
Discharge Patient (As Directed); Ordered 03/27/24
Ordered By: Lewis Murillo
Discharge Date and Time
Discharge Date/Time: 03/27/24 11:42
Print Language: AMHARIC
[2024-03-27] MEDS: AFLURIA (36 mos+) 2024-2025 FORMULA 0.5 ML IM (11:18)
[2024-03-27] MEDS: NOVOLOG FLEXPEN-MODERATE RESISTANCE SC (11:22)
--- NOTE | 2024-03-27 11:47 | CM ---
Reviewed the chart notes. Patient's spouse to provide transportation home. CM continues to be available to patient/family and is monitoring medical plan for needs at discharge.
Plan: Discharge to home with no additional needs being identified at this time.
[2024-03-27 12:01] LABS: Glycohemoglobin (HgbA1c) 8.7 % (4.0-5.6)
--- NOTE | 2024-03-28 12:17 | OR.RPT ---
Operative Report
Operative Report
Patient Name: Bryan Francis
: 1960
Date of Operation: 03/26/2024
Preoperative Diagnosis: Acute cholecystitis, fatty liver disease
Postoperative Diagnosis: Gangrenous cholecystitis, fatty liver disease
Procedure(s):
1. Laparoscopic Cholecystectomy with Cholangiogram
2. Liver biopsy
Surgeon(s):
Dr. Berger
Medical Dir(s):
RONY Bowman
Anesthesia: General
Estimated Blood Loss: 11 cc
Urine Output: None
Drains/Lines/Implants: 19 Mongolian round Wayne drain
Specimens:
1. Gallbladder and contents
2. Liver biopsy
HPI/Surgical Indications:
This is a 63-year-old male with a history of diabetes who presents with a several day history of right upper quadrant abdominal pain. Exam, labs and imaging are consistent with acute cholecystitis. Risks/Benefits/Alternatives were discussed at
length, and the patient agreed to proceed with surgery.
Operative Findings: Gangrenous cholecystitis without perforation. Critical view of safety obtained prior to a cholangiogram which demonstrated no distal filling defects. Duct ligated with a clip followed by a 0 PDS Endoloop. Fatty appearing
liver, biopsy taken from segment 4.
Procedure Description:
The patient was brought to the Operating Room and placed in the supine position with one arm tucked. Following uneventful induction of general endotracheal anesthesia, an orogastric tube was placed. The abdomen was prepped and draped in the usual
sterile fashion. A timeout was performed confirming the procedure, consent, and that IV antibiotics were infused and sequential compression devices were confirmed to be on. The abdomen was entered using a left subcostal Veress technique which
required a single pass followed by a 5mm right upper quadrant Optiview trochar. Pneumoperitoneum to 15 mmHg pressure was obtained without difficulty and we confirmed that no injury had occurred during our entry. The patient was positioned in reverse
Trendelenberg and rotated with the right side up slightly. Two 5mm trocars were then placed along the right subcostal margin, followed by a 12 mm port in the epigastrium. The gallbladder was notably distended and there was patchy areas of necrosis
but no perforation. The gallbladder was emptied using a decompressing needle through the fundus of the gallbladder with evacuation of bilious hydrops before A locking grasping forceps was placed on the fundus of the gallbladder where it was then
retracted cephalad and to the right. Using appropriate grasping instruments, the peritoneum overlying the triangle of Calot was incised and extended superiorly on both the anterior and posterior gallbladder de la cruz. The infundibulum was dissected off
the cystic plate. The cystic triangle was dissected until a critical view of safety was achieved. The cystic artery was medialized, dissected and controlled with 2 proximal clips and 1 distal. The cystic duct/gallbladder junction in turn was
identified, dissected circumferentially and a clip was placed. A ductotomy was made and a cholangiocatheter on an Guaman clamp was inserted into the cystic duct. A C-arm was draped and brought into the field. An intra-operative cholangiogram was
performed and was noted to have:
No filling defects in the biliary tree
No significant biliary dilation
Brisk flow of contrast into the duodenum
Normal biliary anatomy
The catheter was then removed and the cystic duct was controlled with a clip followed by a 0 PDS Endoloop. After ensuring both the artery and duct were divided, the gallbladder was freed from the liver using electrocautery. There was no spillage
of bile or stones. The gallbladder bed was inspected and excellent hemostasis was obtained. We then turned our attention to the liver which appeared to be grossly abnormal and consistent with fatty liver disease. A customer response representative sample biopsy was
taken from segment 4. This was extracted and hemostasis was achieved. The gallbladder was extracted through the 12 mm trocar site using an endocatch bag. The abdomen was again irrigated and excellent hemostasis was assured. The 12 mm trocar site
was closed using 0 PDS suture. All remaining trocars were then removed and the pneumoperitoneum was evacuated. All trocar sites were closed at the skin level using 4-0 Monocryl followed by Dermabond. Overall, the patient tolerated the procedure
well and was taken to the Recovery Room postoperatively in stable condition.
I was the attending physician and performed the procedure with assistance from the ACCOUNTANT MANAGER above. I was present for all portions of the case, excluding skin closure.
Fly Berger MD
== END 2024-03-27 11:42 | disposition home or self-care (01) | DRG 418 ==
LOC: 2 SOUTH 06:07
PROVIDERS: Clinical Nurse Specialist Family Health; Emergency Medicine; Surgery; ADMITTING PHYSICIAN Hospitalist; ATTENDING PHYSICIAN Family Medicine; EMERGENCY PHYSICIAN Student in an Organized Health Care Education/Training Program; FAMILY PHYSICIAN Family Medicine
PROC: BF101ZZ Fluoroscopy of Bile Ducts using Low Osmolar Contrast (ICD-10-PCS; 2024-03-26)
PROC: 0FB04ZX Excision of Liver, Percutaneous Endoscopic Approach, Diagnostic (ICD-10-PCS; 2024-03-26)
PROC: 0FT44ZZ Resection of Gallbladder, Percutaneous Endoscopic Approach (ICD-10-PCS; 2024-03-26)
DX: K80.00 Calculus of gallbladder with acute cholecystitis without obstruction (principal); E87.20 Acidosis, unspecified; K82.A1 Gangrene of gallbladder in cholecystitis; I10 Essential (primary) hypertension; E11.65 Type 2 diabetes mellitus with hyperglycemia; K76.0 Fatty (change of) liver, not elsewhere classified; Z79.84 Long term (current) use of oral hypoglycemic drugs
CPT/HCPCS: 88304; 88307; 71046; 74177; 74300; 76000; 76700; 80053; 82010; 82962; 83036; 83605; 83690; 84484; 85025; 85027; 86803; 88313; 90686; 93005; 96361; 96374; 96375; 99285; G0008; Q9967

== ENCOUNTER 2024-04-04 15:00 | Inpatient (IN) | payer BC, SELFPAY ==
[2024-04-04 12:06] VITALS: BP 133/78
[2024-04-04 12:25] VITALS: BMI 31.3
--- NOTE | 2024-04-04 12:26 | ED.GENMED ---
History of Present Illness
General
Chief Complaint: Abnormal Lab Value
Source: patient, records and spouse
Exam Limitations: none
Time Seen by Provider: 04/04/24 12:10
Nursing documentation reviewed up to this point in time: agreed with
History of Present Illness
History of Present Illness:
63-year-old male with a past medical history of hypertension, diabetes who presents to the emergency room after having CT which incidentally found pulmonary embolism. Patient had recent admission 03/26/2024 until 03/27/2024�had surgery for acute
cholecystitis with Dr. Berger. During his workup for abdominal pain/cholecystitis he was incidentally found to have right renal lesion and was recommended for follow-up study to better evaluate. Today he had his scheduled CT abdomen and pelvis
with IV contrast at 7:30 AM; he received a call directing him to the ER after bilateral lower lobe PEs were noted on this study. The renal lesion for which the study was performed appears to be a cyst. Patient is asymptomatic. He denies any chest
pain, shortness of breath. He says he is a chronic cough no hemoptysis. He denies any swelling or pain in the legs. He denies any prior history of DVT/PE. He is not on any blood thinners.
Past History
Past History
ED Past Medical History: HTN, NIDDM and Other (fatty liver)
ED Past Surgical History: Orthopedic (discectomy)
Social History
Tobacco: Former smoker
Alcohol: Occasional
Personal:
Living: with family
Review of Systems
Review of Systems
All Other Systems: ROS reviewed and negative except as documented in HPI and ROS
Constitutional: Denies fever
Respiratory: Reports cough; Denies hemoptysis or trouble breathing
Cardiac: Denies chest pain or palpitations
ABD/GI: Denies abdominal pain
Musculoskeletal: Denies muscle pain or edema
Neurological: Denies dizzy or headache
Phy Exam
Physical Exam
Physical Exam:
General: Awake, alert, oriented x3; no acute distress
Head: Normocephalic, atraumatic
Eyes: Conjunctiva normal
Throat: Airway intact, handling secretions
Neck: Trachea midline
Lungs: Clear to auscultation bilaterally, no wheezing, rales, rhonchi
Heart: Regular rate and rhythm, no murmurs, gallops, or rubs
Neuro: No gross deficits
Skin: no rash
Extremities: Trace but symmetric edema around the ankles bilaterally, no calf tenderness bilaterally, good pulses in the lower extremities bilaterally
Scores
Heart Failure Risk
Heart Failure Risk Score: Not Applicable
Heart Score for Chest Pain Patients
STEMI patient?: Not applicable
Withdrawal Assessment of Alcohol
Withdrawal Assessment Completed?: Not applicable
Course
Orders/Labs/Results
Orders:
Orders
04/04/24 12:11
Echo 2D MMode Color/Doppler Urgent
Reason for Study: PE
Cardiology Consult: George Saldivar
04/04/24 12:12
Electrocardiogram (*1) Urgent
Reason for Study: Chest Pain
EKG- Treatment ONCE
04/04/24 12:25
CT Chest Pe Study Urgent
Comment:
Reason For Exam: PE seen on CT abd
Peripheral Venous Lwr Ext Bilat US [US Periph Venous LOWER Ext Lazaro] Urgent
Comment:
Reason For Exam: pulmonary embolism
04/04/24 12:37
Complete Blood Count/With Diff Urgent
Comprehensive Metabolic Panel Urgent
NT-proBNP Urgent
PTT Urgent
Prothrombin Time Urgent
Troponin I Urgent
04/04/24 13:50
0.9% Sodium Chloride 1000 ml [Nss] 1,000 ml IV BOLUS
Heparin 7,900 units IV NOW STA
Nursing to Place Non Medication Order As Directed
Physician Order: PTT 6 hours after initial start of Heparin infusion
04/04/24 14:00
Heparin 49472 Units/250 ml 25,000 units in 250 ml IV PER PROTOCOL
Weight to be used for heparin protocol in kilograms (kg):: 99
Protocol:: DVT/PE
PTT Goal Range to be used:: PTT 73 to 111 seconds
Order type:: Initial
INITIAL Infusion Dose (UNITS/KG/hr) & then follow protocol:: 18 units/kg/hr
Infusion Dose in UNITS/hr & then follow protocol (UNITS/hr):: 1,800
INFUSION RATE in mL/hr & then follow protocol (mL/hr):: 18
For DVT/PE algorithm, re-bolus for low PTT?: Yes
PTT less than or equal to 64 seconds:: Re-bolus 80 units/kg (max 10,000units). Increase by 400 units/hr
(+ 4mL/hr)
PTT 64.1 to 72.9 seconds:: Re-bolus 40 units/kg (max 5,000 units). Increase by 200 units/hr
(+ 2mL/hr)
PTT 73 to 111 seconds:: Target Range. No change in rate.
PTT 111.1 to 130.9 seconds:: Decrease rate by 200 units/hr (- 2 mL/hr)
PTT 131 to 199.9 seconds:: HOLD for 1 hr. Then decrease by 300 units/hr (- 3mL/hr)
PTT greater than or equal to 200 seconds:: HOLD for 2 hrs & Notify Provider. Then decrease by 400 units/hr
(- 4mL/hr)
Lab follow-up:: Each change, PTT q6h until 2 consecutive are therapeutic. Then
PTT daily.
04/04/24 14:07
Heparin 7,900 units IV PRN PRN
04/04/24 14:09
Heparin 4,000 units IV PRN PRN
Abnormal Lab Results
04/04/24
12:37
MPV 10.6 H fL
(7.4-10.4)
Absolute Monos (auto) 0.9 H 10^3/uL
(0.1-0.6)
Monocytes % 9.6 H %
(1.7-9.3)
Glucose 213 H mg/dl
(70-99)
Total Bilirubin 1.4 H mg/dl
(0.2-1.3)
ALT 56 H U/L
(0-50)
04/04/24 12:37
04/04/24 12:37
Vital Signs
Initial and Last Documented VS:
Initial Vital Signs
Temp Pulse Resp BP Pulse Ox
36.4 C 69 16 133/78 99
04/04/24 12:06 04/04/24 12:06 04/04/24 12:06 04/04/24 12:06 04/04/24 12:06
Last Documented Vital Signs
Temp Pulse Resp BP Pulse Ox
36.4 C 84 17 133/78 98
04/04/24 12:06 04/04/24 12:45 04/04/24 12:45 04/04/24 12:06 04/04/24 12:30
MDM/Problems Addressed
Differential Diagnosis Includes:
PE
MDM/Problems Addressed:
63-year-old male who is 9 days postop from cholecystectomy presents after CT performed for renal cyst made incidental note of bilateral lower lobe pulmonary emboli. He is asymptomatic and he has normal vital signs. Physical exam as above. Will
place an IV send labs including a CBC and a CMP, coags, troponin, proBNP. Will check EKG. Will check dedicated CTA chest to evaluate clot burden, check lower extremity ultrasound. Discussed with cardiology for echocardiogram as well. Will start
on heparin�given recent surgery would err towards inpatient treatment regardless of clot burden. Admit to hospitalist service�Case discussed with hospitalist.
*Pulse Oximetry
Patient hypoxic: no
*EKG
Interpreted by ED Provider?: Yes
Heart Rate: 66
Rate: normal
Rhythm: sinus
[place]: left axis deviation
Interval: first degree heart block
QRS Pattern: normal QRS
Ischemia: no ischemia
*Critical Care Note
Total Time (30-74mins, 75-104mins- exclusive of procedures): Not Applicable
Data Reviewed
Review of Other/Old Records Reveals: Labs, Records and Radiology Studies
Source: patient, records and spouse
ED Attending Note
-
Portions of this chart may have been created with voice recognition software.� Occasional wrong word or��sound alike� substitutions may have occurred due to the inherent limitations of voice recognition software.
Discharge Plan
Departure
Prescriptions:
No Action
metformin 1,000 MG tablet
1,000 mg PO BID@0800,1700 Qty: 20 0RF
atorvastatin 10 mg Tablet
10 mg PO QPM
losartan 100 mg Tablet
100 mg PO DAILY
glipizide 10 mg Tablet Extended Release 24hr
10 mg PO DAILY
acetaminophen 325 mg Tablet
650 mg PO Q4HPRN PRN (Reason: Mild Pain / Temp > 101) Qty: 60 0RF
amlodipine 10 MG tablet
10 mg PO DAILY
atenolol 50 MG tablet
50 mg PO DAILY
Referrals:
Ab Montanez MD [Family Provider] -
Interventions
Interventions:
*Risk Screen - Suicide Last Done: 04/04/24 12:06
*General Assessment Last Done: 04/04/24 12:06
*Neglect/Abuse Screening Last Done: 04/04/24 12:06
Discharge Date and Time
Print Language: TURKISH
[2024-04-04 12:50] LABS: % Basophils 1.1 % (0-2); % Eosinophils 4.8 % (0-6); % Immature Granulocytes 0.3 % (0-0.5); % Lymphocytes 27.7 % (20.5-51.1); % Monocytes 9.6 % (1.7-9.3); % Neutrophils 56.5 % (42.2-75.2); Absolute Basophils 0.1 10^3/uL (0-0.2); Absolute Eosinophils 0.4 10^3/uL (0-0.7); Absolute Lymphocytes 2.5 10^3/uL (1.2-3.4); Absolute Monocytes 0.9 10^3/uL (0.1-0.6); Absolute Neutrophils 5.1 10^3/uL (1.4-6.5); Hematocrit 43.5 % (39.0-52.0); Hemoglobin 15.2 g/dL (13.0-18.0); Mean Corp Hgb Conc. 34.9 g/dL (33.0-37.0); Mean Corpuscular Hgb 30.2 pg (27.0-31.0); Mean Corpuscular Volume 86.5 fL (80.0-94.0); Mean Platelet Volume 10.6 fL (7.4-10.4); Nucleated Red Blood Cells % 0 % (-); Platelet Count 185 10^3/uL (130-400); Red Blood Cell Count 5.03 10^6/uL (4.70-6.10); Red Cell Dist. Width 12.7 % (11.5-14.5)
[2024-04-04 13:09] LABS: ALT (SGPT) 56 U/L (0-50); AST (SGOT) 44 U/L (17-59); Albumin 4.4 g/dl (3.5-5.0); Alkaline Phosphatase 76 U/L (38-126); Blood Urea Nitrogen 20 mg/dl (9-20); Calcium 9.7 mg/dl (8.4-10.2); Carbon Dioxide 24 mmol/L (22-30); Chloride 102 mmol/L (98-107); Estimated Creatinine Clearance 100 ml/min; Glucose 213 mg/dl (70-99); Potassium 4.6 mmol/L (3.5-5.1); Sodium 138 mmol/L (135-145); Total Bilirubin 1.4 mg/dl (0.2-1.3); Total Protein 7.1 g/dl (6.3-8.2); eGFR > 60.00
[2024-04-04 13:13] LABS: INR 0.93; PT 12.9 Sec (11.4-14.6)
[2024-04-04 13:14] LABS: APTT 28.5 Sec (23.4-35.0)
[2024-04-04 13:19] LABS: NT-proBNP 48.7 pg/ml; Troponin I < 0.012 ng/ml
--- NOTE | 2024-04-04 14:30 | HPS.HSE ---
Family Physician
-
Family Physician: Ab Montanez
Chief Complaint
-
Pulmonary Emboli
History of Present Illness
Patient is 63 y/o male past medical history of hypertension, diabetes mellitus and recent cholecystectomy on 03/26/2024 who presents with bilateral pulmonary emboli. Patient had an Abdomen CT scan today to follow-up a renal cyst noted on a prior
scan. Today's scan was positive for bilateral pulmonary emboli and he was sent to the emergency department for evaluation. Patient denies chest pain or shortness of breath. He denies any family history of blood clots.
Medical History
Past Medical History
Past Medical History: Reports Other
Additional Past Medical History:
Hypertension
Hyperlipidemia
DM-II
Depression
DDD
Fatty Liver / MAFLD
Past Surgical History: Reports Other
Additional Past Surgical History:
Lumbar Discectomy
Cholecystectomy
Social History
Tobacco: Former Smoker (Quit smoking about 20 years ago. Approx 20 pack years total use.)
Alcohol: Occasional (Very rare.)
Personal:
Living: With Family
Family History
Family History: Other (Father: CAD, AAA, Prostate Cancer Mother: A-Fib, GB Disease)
Allergies / Home Medications
Allergies reflects when Allergies were last updated in [facility].
Home Medications with original date entered in [facility]
Allergy/Medication List:
Allergies
Allergy/AdvReac Type Severity Reaction Status Date / Time
Penicillins Allergy Unknown Verified 04/04/24 12:05
Home Medications
metformin 1,000 mg tablet 1,000 mg PO BID@0800,1700 #20 tabs 04/11/19
atorvastatin 10 mg tablet 10 mg PO QPM High Cholesterol 03/26/24
glipizide 10 mg tablet, extended release 24 hr 10 mg PO DAILY Diabetes 03/26/24
losartan 100 mg tablet 100 mg PO DAILY blood pressure 03/26/24
acetaminophen 325 mg tablet 650 mg (2 x 325 mg) PO Q4HPRN PRN Mild Pain / Temp > 101 #60 tabs 03/27/24
amlodipine 10 mg tablet 10 mg PO DAILY Blood Pressure 04/04/24
atenolol 50 mg tablet 50 mg PO DAILY Blood Pressure 04/04/24
Review of Systems
-
A 12 point ROS was completed and negative except as noted: Yes
Constitutional: Denies Fever or Chills
Respiratory: Denies Cough or Trouble Breathing
Cardiac: Denies Chest Pain or Palpitations
Abdomen/GI: Denies Abdominal Pain, Nausea, Vomiting or Diarrhea
Physical Exam
Vital Signs
Vital Signs
Temp Pulse Resp BP Pulse Ox
97.6 F 84 17 133/78 98
04/04/24 12:06 04/04/24 12:45 04/04/24 12:45 04/04/24 12:06 04/04/24 12:30
Physical Exam
General: Comfortable and Conversant
HEENT: Anicteric and Moist mucous membranes
Respiratory: Clear and Non Labored Respirations
Cardiac: S1/S2 and Regular Rhythm
GI: Soft, Non Tender and Non Distended
Rectal: Deferred by Provider
Musculoskeletal: No Clubbing, No Cyanosis and No Edema
Skin: Warm and Dry
Neuro: Awake, Alert, Oriented and Nonfocal/grossly intact
Psych: Calm
Laboratory Results
-
04/04/24 12:37
04/04/24 12:37
Laboratory Results
PT 12.9 Sec (11.4-14.6) 04/04/24 12:37
INR 0.93 04/04/24 12:37
APTT 28.5 Sec (23.4-35.0) 04/04/24 12:37
Total Bilirubin 1.4 mg/dl (0.2-1.3) H 04/04/24 12:37
AST 44 U/L (17-59) 04/04/24 12:37
ALT 56 U/L (0-50) H 04/04/24 12:37
Alkaline Phosphatase 76 U/L (38-126) 04/04/24 12:37
Troponin I < 0.012 ng/ml 04/04/24 12:37
Data Reviewed
-
CT Scan: Report Reviewed by me
Lab Data: Labs Reviewed by me
Impression/Plan
-
Bilateral Pulmonary Emboli - Provoked following recent surgery
-Continue heparin drip
-Monitor for bleeding
Essential Hypertension
-Continue amlodipine, atenolol and losartan with hold parameters
Diabetes Mellitus, Type II
-Hold metformin post IV dye
-Continue Glipizide
-Monitor sugars and continue coverage insulin
Code Status: Full Code
[2024-04-04] MEDS: NSS 1000 IV (14:55)
[2024-04-04] MEDS: HEPARIN 7900 UNITS IV (14:57)
[2024-04-04] MEDS: HEPARIN 25000 UNITS/250 ML IV (15:03)
--- NOTE | 2024-04-04 15:18 | W.PN.UPDATE ---
Update Note
Progress Note Update
This note serves as an addendum to the H&P by heel compressor JANIS Denise GE
HPI
63M Former smoker POD#9 Laparoscopic Cholecystectomy with Cholangiogram for Gangrenous cholecystitis, fatty liver disease (03/26/24 - Dr Fly Frankel) and Liver biopsy, FU CT AP with Surgeon shows incidentally to have bilateral lower lobe
pulmonary emboli. NEG B/l LE US. Unremarkable ECHO
PHX: HTN, DM, fatty liver
Reviewed VS: unremarkable VSS
Vital Signs
Temp Pulse Resp BP Pulse Ox
97.6 F 62 17 133/78 99
04/04/24 12:06 04/04/24 14:00 04/04/24 12:45 04/04/24 12:06 04/04/24 14:00
PE
Gen: NAD, not toxic
HEENT: anicteric
Neck: supple
Lungs: symmetric AE , no additinal sound
Cor: RRR S1 S2
Abdomen: soft NT, NG, MRT
RN TELEMETRY: AAO3, NFND
MS: no edema
Psych: AAO3
Data
Unremarkable CBC and BMP
TB 1.4 , ALT 56,
NEG TPNI
Unremarkable proBNP
04/04/24 CT abdomen pelvis 03/26/2024
1. There are bilateral lower lobe pulmonary emboli.
2. The 6 mm hypodense lesion within the interpole the right kidney does not demonstrate discrete enhancement and is favored to represent cyst. There are additional bilateral renal cysts.
3. Hepatic steatosis.
4. Postoperative changes of cholecystectomy with stranding in the anterior upper midline abdomen, which is likely postoperative change.
US Periph Venous LOWER Ext Lazaro
No sonographic evidence for lower extremity venous thrombosis.
04/04/24 TTE
Normal left ventricular chamber size. Normal left ventricular systolic function.
Left ventricular ejection fraction is 60-65% by visual assessment.
Normal regional wall motion. Mild concentric left ventricular hypertrophy.
Normal diastolic function.
Normal right ventricular size and function. S' RV free wall tissue Doppler is
normal.
Right heart pressures could not be determined due to lack of tricuspid regurgitation.
EKG report
SINUS RHYTHM WITH 1ST DEGREE A-V BLOCK
LEFT AXIS DEVIATION
ANTEROLATERAL INFARCT (CITED ON OR BEFORE 26-MAR-2024)
ABNORMAL ECG
WHEN COMPARED WITH ECG OF 26-MAR-2024 02:44,
NO SIGNIFICANT CHANGE WAS FOUND
Confirmed by Jason GARZON ERIC ([id number]) on 04/04/2024 12:39:21 PM
03/26/24 CT Abd/pelvis W Iv Cont
There are small calcified gallstones within the dependent portion of the gallbladder. These gallstones were not able to be visualized by ultrasound.
On coronal image 24 of series 202, suggestion of slight stranding of the fat inferior to the gallbladder. This is a subtle finding, but suggests the possibility of acute cholecystitis, and please correlate clinically.
No evidence for biliary ductal dilation.
Fatty infiltration of the liver.
Arising in the medial lower pole the right kidney, there is a 6 mm lesion which cannot be definitively characterized as a cyst. Further evaluation is advised with dedicated CT or MRI of the abdomen with attention to the kidneys, to be performed
without and with contrast if there are no contraindications.
ASSESSMENT & PLAN
Asymptomatic incidental b/l LE PE: suspect provoked post surgery
Stable HD state
No evidence of RH strain clinically and by ECHO
NEG b/l Beatriz US
- agree with admission due to risk of bleeding with heparin gtt
- agree with heparin gtt
- informed GS for FYI. No official consult
Essential HTN
- c/w Amlodipine, Losartan
T2DM
- hold Metformin
- c/w Glipizide
- add ISS low
6 mm hypodense lesion within the interpole the right kidney does not demonstrate discrete enhancement and is favored to represent cyst
- o/p FU with PCP
DVT Px: Hearing
Full code
IP TLM
[2024-04-04 15:57] VITALS: BP 141/80; BMI 30.7
[2024-04-04 16:05] LABS: Glucose - Point of Care 221 mg/dl (70-99)
[2024-04-04] MEDS: NOVOLOG FLEXPEN-LOW RESISTANCE 2 UNITS SC (17:41)
[2024-04-04 19:47] VITALS: BP 134/78
[2024-04-04 21:12] LABS: Glucose - Point of Care 164 mg/dl (70-99)
[2024-04-04 21:43] LABS: APTT > 200 Sec (23.4-35.0)
[2024-04-04 23:13] VITALS: BP 113/70
[2024-04-05 03:31] VITALS: BP 127/76
[2024-04-05] MEDS: HEPARIN 25000 UNITS/250 ML IV (05:47)
[2024-04-05 06:24] LABS: Hematocrit 44.5 % (39.0-52.0); Mean Corp Hgb Conc. 33.7 g/dL (33.0-37.0); Mean Corpuscular Hgb 29.7 pg (27.0-31.0); Mean Corpuscular Volume 88.1 fL (80.0-94.0); Mean Platelet Volume 10.3 fL (7.4-10.4); Platelet Count 176 10^3/uL (130-400); Red Blood Cell Count 5.05 10^6/uL (4.70-6.10); Red Cell Dist. Width 12.7 % (11.5-14.5); White Blood Cell Count 8.5 10^3/uL (4.8-10.8)
[2024-04-05 06:35] LABS: APTT 74.6 Sec (23.4-35.0)
[2024-04-05 07:46] LABS: Glucose - Point of Care 171 mg/dl (70-99)
--- NOTE | 2024-04-05 08:00 | W.PN.HOSP.TC ---
Addendum entered and electronically signed by Bethany Saravia MD 04/05/24 13:05:
total > 40 min spent with resident
Addendum entered and electronically signed by Bethany Saravia MD 04/05/24 13:05:
I saw and evaluated the patient. I reviewed the resident�s note and agree with findings and plan as documented in the resident�s note.
63-year-old male, called to come to the ER due to incidental finding from outpatient CT scan noting bilateral PE. Patient had CT scan done to evaluate kidney lesions which turns out to be cyst. His outpatient CT scan noted bilateral PE without
right heart strain.
Acute PE/provoked PE (due to recent cholecystectomy for acute cholecystitis) worked up in the hospital was unrevealing: ultrasound negative for DVT, echo unrevealing and negative for right heart strain.
He was started with heparin drip and was discharged with Eliquis to continue acute VTE treatment: Eliquis 10 mg twice daily for 7 days, then 5 mg twice daily for 3 months.
Original Note:
Today's Communication/Plan
-
Start Eliquis
Discharge planning
Follow-up with PCP
Assessment / Plan
Assessment / Plan
Impression: 63-year-old male with PMH of essential hypertension, type 2 diabetes mellitus, mixed hyperlipidemia, who presented to ED on 04/04 after being redirected for an incidental finding of bilateral lower lobe PE found on CT abdomen.
Patient had recent cholecystectomy on 03/26 with an incidental finding of renal cysts for which CT scan was scheduled for further evaluation. Patient denies chest pain, shortness of breath, hemoptysis, family history of blood clots.
Assessment/plan:
#Bilateral PE-provoked by recent surgery
-PESI class I (score 10)-low risk of .
-Received heparin gtt.
-Bilateral LE ultrasound negative for DVT.
-No evidence of right heart strain on echo.
-Heparin discontinued.
-Serum creatinine 0.9
-Will discharge on Eliquis 10 mg twice daily for 7 days and 5 mg twice daily thereafter for at least 3 months.
-Follow-up with PCP.
#History of laparoscopic cholecystectomy�POD #10
-Most likely cause of the above.
Essential hypertension
-Continue losartan, amlodipine and atenolol.
#Type 2 diabetes mellitus
-Controlled on glipizide and metformin
-Hold metformin with recent IV contrast.
-Low SSI
#Mixed hyperlipidemia
-Continue atorvastatin.
DVT prophylaxis-heparin
CODE STATUS: Full code
Data:
04/04/24 CT abdomen pelvis 03/26/2024
1. There are bilateral lower lobe pulmonary emboli.
2. The 6 mm hypodense lesion within the interpole the right kidney does not demonstrate discrete enhancement and is favored to represent cyst. There are additional bilateral renal cysts.
3. Hepatic steatosis.
4. Postoperative changes of cholecystectomy with stranding in the anterior upper midline abdomen, which is likely postoperative change.
US Periph Venous LOWER Ext Lazaro
No sonographic evidence for lower extremity venous thrombosis.
04/04/24 TTE
Normal left ventricular chamber size. Normal left ventricular systolic function.
Left ventricular ejection fraction is 60-65% by visual assessment.
Normal regional wall motion. Mild concentric left ventricular hypertrophy.
Normal diastolic function.
Normal right ventricular size and function. S' RV free wall tissue Doppler is
normal.
Right heart pressures could not be determined due to lack of tricuspid regurgitation.
Anticipated Discharge: 24 - 48 hours
Subjective/Interval History
-
Date of Service: April 05, 2024
I saw and examined the patient at bedside. Reports feeling good, denies chest pain, shortness of breath, palpitations, fevers, chills. Patient was in no respiratory distress, has not required oxygen supplementation, oral pain medication. He
denies family history of cancer, lung disease, blood clots, ischemic heart disease, liver or kidney issues or thrombocytopenia.
Objective Data
-
Labs:
Laboratory Results
04/04/24 04/05/24 04/05/24
21:09 06:02 13:00
WBC 8.5
Hgb 15.0
Hct 44.5
Plt Count 176
APTT > 200 H* 74.6 H Pending
Vital Signs:
Vital Signs
Temp Pulse Resp BP Pulse Ox
98.0 F 64 18 127/76 96
04/05/24 03:31 04/05/24 03:31 04/05/24 03:31 04/05/24 03:31 04/05/24 03:31
Review of Systems
-
History Source: Patient
All other systems: Reviewed and negative
Physical Exam
-
General: Well Developed, No Apparent Distress and Comfortable
HEENT: Normocephalic, Atraumatic and Moist Mucous Membranes
Respiratory: Clear to Auscultation
Cardiac: Regular Rhythm and S1/S2; Negative Murmur, Rub or Gallop
GI: Soft, Nontender, Nondistended and Normal Bowel Sounds; Negative Organomegaly
Rectal: Deferred by Provider
Musculoskeletal: No Clubbing, No Cyanosis and No Edema
Skin: Warm; Negative Rash
Neuro: Awake, AO x 3 and Nonfocal/Grossly Intact
Psych: Calm and Intact Judgement/Insight
Data Reviewed
-
Diagnostic Radiology: Image personally visualized and interpreted, Report Reviewed by me and Discussed with Physician
CT Scan: Image personally visualized and interpreted, Report Reviewed by me and Discussed with Physician
Ultrasound: Image personally visualized and interpreted, Report Reviewed by me and Discussed with Physician
Labs: Labs Reviewed by me and Discussed with Physician
Old Records: Reviewed
[2024-04-05 08:03] VITALS: BP 139/78
[2024-04-05] MEDS: NOVOLOG FLEXPEN-LOW RESISTANCE 1 UNITS SC (08:14)
[2024-04-05] MEDS: NORVASC 10 MG PO (08:16)
[2024-04-05] MEDS: GLUCOTROL XL (EXTENDED RELEASE) 10 MG PO (08:16)
[2024-04-05] MEDS: COZAAR 100 MG PO (08:16)
[2024-04-05] MEDS: TENORMIN 50 MG PO (08:16)
[2024-04-05] MEDS: ELIQUIS 10 MG PO (08:16)
--- NOTE | 2024-04-05 10:22 | EDCM ---
Patient seen bedside.
IA completed.
Patient lives with spouse in a 2 story home.
Independent prior to admission without assistive devices.
Patient with no hx VN.
Denies home care needs at this time.
Patient drives, is retired.
Spouse will transport home.
PCP: LUIZA Gonzalez- Peyton VAUGHAN
Pharmacy: [facility]
Patient for d/c home on Eliquis.
TC to [facility] pharmacy- [phone], per pharmacist- 0 copay.
Coupons provided just in case there is a copay.
--- NOTE | 2024-04-05 10:25 | W.DCSUMMARY ---
Discharge Summary
Discharge Data
Date of Admission: 04/04/24
Date of Discharge: 04/05/24
-
Pending Results: No
Hospital Course
Discharging Physician : Bethany Saravia MD ; John Wood MD
Disposition : Home
Primary care physician : Ab Montanez MD
Principal Discharge diagnosis : Pulmonary embolism (provoked)
Chronic Discharge diagnosis : Essential hypertension, type 2 diabetes mellitus, mixed hyperlipidemia.
Hospital Course : 63-year-old male with PMH of essential hypertension, type 2 diabetes mellitus, mixed hyperlipidemia, who presented to ED on 04/04 after being redirected for an incidental finding of bilateral lower lobe PE found on CT
abdomen/Pelvis . Patient had recent cholecystectomy on 03/26 with an incidental finding of renal cysts for which CT scan was scheduled. While in the ED, patient's vitals were stable, with no chest pain, hemoptysis, shortness of breath. Patient was
started on heparin gtt and admitted for further evaluation and management. Patient was further evaluated with bilateral lower extremity ultrasound which was negative for DVT and transthoracic echocardiogram negative for right heart strain.
Overnight, patient was monitored and was in no acute cardiopulmonary distress. Patient has been evaluated and is medically stable for discharge.
Patient has been instructed to take Eliquis 10 mg twice daily for the next 7 days and continue with 5 mg twice daily for three months. He has also been instructed to follow-up with his primary care physician for further management.
Important imaging findings :
04/04/24 CT abdomen pelvis 03/26/2024
1. There are bilateral lower lobe pulmonary emboli.
2. The 6 mm hypodense lesion within the interpole the right kidney does not demonstrate discrete enhancement and is favored to represent cyst. There are additional bilateral renal cysts.
3. Hepatic steatosis.
4. Postoperative changes of cholecystectomy with stranding in the anterior upper midline abdomen, which is likely postoperative change.
US Periph Venous LOWER Ext Lazaro
No sonographic evidence for lower extremity venous thrombosis.
04/04/24 TTE
Normal left ventricular chamber size. Normal left ventricular systolic function.
Left ventricular ejection fraction is 60-65% by visual assessment.
Normal regional wall motion. Mild concentric left ventricular hypertrophy.
Normal diastolic function.
Normal right ventricular size and function. S' RV free wall tissue Doppler is
normal.
Right heart pressures could not be determined due to lack of tricuspid regurgitation.
Discharge Plan
-
Patient Disposition: Home (Routine Discharge)
Discharge Diagnosis/Procedures: Provoked pulmonary embolism, essential hypertension, hyperlipidemia, type 2 diabetes mellitus
Condition: Good
Diet: No restrictions
Activity: No restrictions
Driving Restrictions: As prior to admission
Bathing Restrictions: None
Referrals:
Ab Montanez MD [Family Provider] - in less than 1 week
Additional Discharge Medication Instructions: Take 2 tablets (10 mg) by mouth twice daily for 7 days and then 1 tablet (5 mg) by mouth twice daily
Prescriptions:
New
Eliquis 5 mg Tablet
10 mg PO BID Qty: 74 0RF
Rx Instructions:
Take 2 tablets (10 mg) by mouth twice daily for 7 days,then take 1 tablet (5 mg) by mouth twice daily
Continued
metformin 1,000 MG tablet
1,000 mg PO BID@0800,1700 Qty: 20 0RF
atorvastatin 10 mg Tablet
10 mg PO DAILY
losartan 100 mg Tablet
100 mg PO DAILY
glipizide 10 mg Tablet Extended Release 24hr
10 mg PO DAILY
acetaminophen 325 mg Tablet
650 mg PO Q4HPRN PRN (Reason: Mild Pain / Temp > 101) Qty: 60 0RF
amlodipine 10 MG tablet
10 mg PO DAILY
atenolol 50 MG tablet
50 mg PO DAILY
Discharge Orders:
Discharge Patient (As Directed); Ordered 04/05/24
Ordered By: John Wood
Discharge Date and Time
Print Language: CROATIAN
[2024-04-05 11:53] VITALS: BP 116/70
[2024-04-05 12:32] LABS: Glucose - Point of Care 220 mg/dl (70-99)
[2024-04-05] MEDS: NOVOLOG FLEXPEN-LOW RESISTANCE 2 UNITS SC (12:50)
--- NOTE | 2024-04-05 14:48 | CM ---
Patient seen bedside.
IA completed.
Patient lives with spouse in a 2 story home.
Independent prior to admission without assistive devices.
Patient with no hx VN.
Denies home care needs at this time.
Patient drives, is retired.
Spouse will transport home.
PCP: LUIZA Gonzalez- Peyton VAUGHAN
Pharmacy: [facility]
Patient for d/c home on Eliquis.
TC to [facility] pharmacy- [phone], per pharmacist- 0 copay.
Coupons provided just in case there is a copay.
== END 2024-04-05 15:01 | disposition home or self-care (01) | DRG 176 ==
LOC: 4 WEST ACU 15:00
PROVIDERS: Physician Assistant Medical; Student in an Organized Health Care Education/Training Program; ADMITTING PHYSICIAN Internal Medicine; ATTENDING PHYSICIAN Internal Medicine; EMERGENCY PHYSICIAN Emergency Medicine; FAMILY PHYSICIAN Family Medicine
DX: I26.99 Other pulmonary embolism without acute cor pulmonale (principal); I10 Essential (primary) hypertension; E11.9 Type 2 diabetes mellitus without complications; E78.2 Mixed hyperlipidemia; F32.A Depression, unspecified; K76.0 Fatty (change of) liver, not elsewhere classified; N28.1 Cyst of kidney, acquired; Z79.84 Long term (current) use of oral hypoglycemic drugs; Z87.891 Personal history of nicotine dependence; Z79.899 Other long term (current) drug therapy; Z88.0 Allergy status to penicillin; Z90.49 Acquired absence of other specified parts of digestive tract
CPT/HCPCS: 71275; 74170; 80053; 82962; 83880; 84484; 85025; 85027; 85610; 85730; 93005; 93306; 93970; 96361; 96374; 99285; Q9967

== ENCOUNTER → 2024-06-04 09:59 | Outpatient (REF) | payer BC, SELFPAY ==
--- NOTE | 2024-04-30 15:15 | PN.DIAED02 ---
Addendum entered by Gisselle Spicer RN 04/30/24 15:55:
dilated eye exam scheduled for: 05/10/2024
Logistics Associate appt: 04/26/2024
Original Note:
Referral
DSME Class Series Code: [id number]
Referred For: Diabetes Self-Management Training, Medical Nutrition Therapy, Self-Blood Glucose Monitoring, Long-Term Complication Instruction, Accute Complication Instruction, Continuous Glucose Monitoring, Medication management, Care Coordination,
Disease Management
PHI Release Authorization Form Signed: Yes
Demographic
Patient's primary language-: Argentine
Education: Advanced college degree
Occupation: Retired
- Social
Primary Care Takers: Self & spouse
Living Arrangements: Self & spouse
- Learning Methods
Preferred Method: Reading
Barriers to Learning: None
Glycemic Control
- Blood Glucose Monitoring Assessment
Date: 03/31/24 (276 FBS)
Blood glucose monitoring at home: No (Has not been testing in over 10 years)
- Hemoglobin A1c
Date: 12/10/23
A1C Percentage (%): 7.8
Medical History of Diabetes
Family Diabetes History: Grandfather (paternal Grandfather)
Previous Diabetes Education: Yes
How long ago?: 1-5 years ago
Previous visit with Dietitian: No
Complications/Comorbidity/Specialist: Gastrointestinal disease (gallbladder surgery 03/24/2024), Hypertension (amlodopine 10 mg daily, lorsartan 10 mg daily), Hyperlipidemia (atrovastatin 10 mg daily), Liver disease (fatty liver disease)
Measures
- Anthropometrics
Height: 5 ft 10 in
Actual Weight: 221 lb 9.6 oz
- Blood Pressure / Pulse
Blood pressure: 128/79
Pulse: 64
- Diabetes Management
Medical Management for Diabetes: Complete physical exam (04/12/2024), Dental exam (10/11/2023), Dilated eye exam (03/13/22 reccomended to make appt prior to class)
Self-Care
- Tobacco Usage
Do you now, or have you ever smoked?: Quit more than 1 year ago (quit 20 years ago)
- Alcohol & Drugs Usage
Drinks Alcohol: Yes
Amount/day: Rarely
- Meals & Dining
Meals & Dining: Patient skips meals: No, Food Intolerance / Allergy: No, Cultural / Denominational Dietary Needs: No
Primary Food Archaeologist: Self & Spouse
Primary Oven Dauber: Self & Spouse
Dining Out Frequency: Never
- Physical Activity
Physical Limitation: No
- Self Foot-Care
Foot Problems: None
Performs Self Foot-Exam: No
- Patient-Self Assessment
Diabetes Knowledge: Fair
Feelings About Diabetes: Acceptance
General Health: Fair
Importance of Health: Extremely
Stress Level: Medium
Diabetes Interferes With:: Nothing
Barriers to Diabetes Management: Nothing
Depression Survey Score: 0
- Diabetes Identification
Carries Diabetes Identification: No
Care Plan
- Education Needs
Patient Education Needs: Diabetes disease process, Chronic complications, Acute complications, Physical activity, Psychosocial Adjustment, Nutritional management, Goal setting & problem solving
Recommended Diabetes Training Program based on assessment: Outpatient Diabetes Education Program
Patient Call Notes
- Patient Call Notes
Patient Goals:
Mr. Francis presented for initial diabetes assessment for the May, evening class. His Donna will be attending with him and she was on speaker phone during our visit. Bryan recently underwent emergency gallbladder surgery on 03/26/24
and then diagnosed with blood clots in his lungs and started on Eloquis Bryan has also been diagnosed with fatty liver and is being followed by an bulk sealer operator who has recommended weight loss and a low fat diet. He has had diabetes for over
20 years however, he has not been checking blood glucose levels at home. I reviewed the importance of blood glucose monitoring and how it can be beneficial to helping to lower the hemoglobin A1c. We discussed checking fasting and 2 hours post meals.
Mrs. Laughlin had numerous questions regarding Bryan limits with fat intake due to his recent surgery and diagnosis of fatty liver. I referred them to reach out to the tonger for more specific recommendations as well as follow up with the GI
team.
Bryan was able to demonstrate a fingerstick and his bg in the office was 244 mg/dL 2 hours post lunch. I reviewed his meal choice for lunch and discussed healthier options. Current A1c from 12/13 is 7.8 % and he is taking Metformin 1000 mg twice
daily and Glipizide ER 10 mg daily. Exercise was discussed and Bryan stated he has not been consistent with exercise throughout the past year and just recently starting walking since the surgery. His stamina for walking is limited due to his
recent surgery but he identified increasing that as one of his goals. I reminded him to make an appt to see podiatry and have his eye exam done prior to starting the class session.
Evaluated By: Registered Nurse (Gisselle Spicer RN)
Patient Note Types: Patient initiated call
--- NOTE | 2024-04-30 15:48 | PN.DIAED04 ---
Education Record
- Education Record
Class Attended: Other (initial assessment DSME)
DSME Class Series Code: [id number]
Instructor: Nurse Practitioner (KASSIDY Bradford)
Pre-Test Score (%): 73.5
Goals
- Goal 1
Being Active: Exercise 15 minutes-3 times per week (would like to increase walking to 30 minutes 3x/week as tolerated )
Goals To Be Evaluated: Exercise 15 mins-3x/week
- Goal 2
Healthy Eating: Follow meal plan (decrease fatty diet and healthier options)
Goals To Be Evaluated: Follow meal plan
- Goal 3
Monitoring: Monitor more often (check bg fasting and 2 hours post meal)
Goals To Be Evaluated: Monitor more often
--- NOTE | 2024-06-05 15:35 | PN.DIAED14 ---
This is to notify you that your patient with diabetes, CANDY CABRERA ( 1960), has enrolled in our diabetes self-management classes that are being held at [facility].
These classes will include an introduction to diabetes, diet, medication, exercise and prevention of complications. At the end of our class series, you will receive a report of your patient's participation and progress for your records.
Please contact me at the Diabetes Center, , if there is any particular information regarding your patient that might be helpful to me.
Sincerely,
Antonio YI-JUAN MANUEL,[facility]
--- NOTE | 2024-06-05 15:36 | PN.DIAED04 ---
<Adela Summesr - Last Filed: 06/05/24 15:36>
Education Record
- Education Record
Class Attended: Class 1
DSME Class Series Code: [id number]
Instructor: Nurse Practitioner (KASSIDY Bradford)
Class Length (mins): 120
Post-Class 1 Test Score (%): 100
<Verito Zelaya - Last Filed: 06/06/24 11:42>
Education Record
- Education Record
Class Curriculum:
Outpatient Diabetes Education Program:
Class 1 (120 minutes)
Describe the diabetes disease process and treatment options
Diabetes management
Develop personal strategies to promote health and behavior change
Integrate psychosocial adjustment for daily living
Monitor blood glucose and other parameters. Interpret and use the results for self-management decision making
Prevent, detect, and treat acute complications
== END ==
LOC: DES 09:59
PROVIDERS: ATTENDING PHYSICIAN Student in an Organized Health Care Education/Training Program
DX: E11.65 Type 2 diabetes mellitus with hyperglycemia (principal)
CPT/HCPCS: 99078

== ENCOUNTER → 2024-06-11 14:01 | Outpatient (REF) | payer BC, SELFPAY | LOC: DES 14:01 | PROVIDERS: ATTENDING PHYSICIAN Student in an Organized Health Care Education/Training Program | DX: E11.65 Type 2 diabetes mellitus with hyperglycemia (principal) | CPT/HCPCS: 99078 ==

== ENCOUNTER → 2024-06-18 11:23 | Outpatient (REF) | payer BC, SELFPAY | LOC: DES 11:23 | PROVIDERS: ATTENDING PHYSICIAN Student in an Organized Health Care Education/Training Program | DX: E11.65 Type 2 diabetes mellitus with hyperglycemia (principal) | CPT/HCPCS: 99078 ==

== ENCOUNTER → 2024-06-25 08:41 | Outpatient (REF) | payer BC, SELFPAY ==
--- NOTE | 2024-06-26 10:40 | PN.DIAED04 ---
Education Record
- Education Record
Class Attended: Class 4
DSME Class Series Code: [id number]
Instructor: Nurse Practitioner (KASSIDY Bradford)
Class Curriculum:
Outpatient Diabetes Education Program:
Class 4 (120 minutes)
Develop personal strategies to promote health and behavior change
Incorporate physical activity into lifestyle
Utilize medications safety for maximum therapeutic effectiveness
Understand different medication/insulin mechanism of action
Preparing for travel
Class Length (mins): 120
Post-Class 4 Test Score (%): 100
== END ==
LOC: DES 08:41
PROVIDERS: ATTENDING PHYSICIAN Student in an Organized Health Care Education/Training Program
DX: E11.65 Type 2 diabetes mellitus with hyperglycemia (principal)
CPT/HCPCS: 99078

== ENCOUNTER → 2024-07-02 13:21 | Outpatient (REF) | payer BC, SELFPAY ==
--- NOTE | 2024-07-04 12:15 | PN.DIAED16 ---
This is to notify you that your patient with diabetes, CANDY CABRERA ( 1960), has attended the entire series of Diabetes Self-Management Education Classes.
Class 1 (120 minutes): Diabetes Overview - monitoring, stress/psychosocial adjustment, support, goal setting
Class 2 (120 minutes): Meal Planning - serving sizes, menu plans
Class 3 (120 minutes): Introduction to Carbohydrate Counting, Analyzing Food Labels
Class 4 (120 minutes): Medication, Exercise and Activity
Class 5 (120 minutes): Sick Day Management, Strategies to Reduce Complications, Problem Solving, Resources
The following behavioral goals were identified:
Exercise 15 mins-3x/week
Follow meal plan
Monitor more often
A follow-up call will be made within three to six months to evaluate attainment of these goals and to check post-program Hemoglobin A1c and overall progress. All class participants are encouraged to contact me if I can be any further assistance in
learning how to manage their diabetes.
Sincerely,
Antonio YI-, [facility]
== END ==
LOC: DES 13:21
PROVIDERS: ATTENDING PHYSICIAN Student in an Organized Health Care Education/Training Program
DX: E11.65 Type 2 diabetes mellitus with hyperglycemia (principal)
CPT/HCPCS: 99078